=== PATIENT | female | born 1950 | race Caucasian/White ===

== ENCOUNTER 2017-01-03 05:18 | Day surgery (SDC) | payer OTHER ==
[~2017-01-03] VITALS: Ht 167.6 cm; Wt 118.2 kg
[~2017-01-03 05:18] MED LIST: ALLO100T PO; AMLO5TAB2 PO; ASPI-110 PO; BIOT1CHW PO; CETI10CA3 PO; COQ-100C5 PO; DIOV320T PO; FERR325C PO; FURO40TA PO; INSU1INJ13 SQ; LEVO112T2 PO; LYRI150C PO; NOVOLOGP2 SQ; OMEP40CA2 PO; TRAD5TAB PO; VITA2000 PO; VITA500T4 PO; VOLT1GEL4 TOPICAL; ZETI10TA5 PO
[2017-01-03] MEDS ORDERED: POVIDONE IODINE 5% (ANTISEPSIS KIT) 4 APPLICATIONS EACH NARE PRN (05:45)
[2017-01-03] MEDS ORDERED: ceFAZolin 2 GM PREMIX 50 ML IV SCH (05:45)
[2017-01-03] MEDS ORDERED: INSULIN HUMAN REGULAR 1,000 UNITS/10 ML VIAL SQ PRN (05:45)
[2017-01-03] MEDS ORDERED: ONDANSETRON HCL 4 MG/2 ML VIAL IV PUSH SCH (05:45)
[2017-01-03] MEDS ORDERED: ACETAMINOPHEN 1000 MG/100 ML VIAL IV SCH (05:45)
[2017-01-03] MEDS ORDERED: APREPITANT 40 MG CAP PO SCH (05:45)
[2017-01-03] MEDS ORDERED: SODIUM CHLORID 0.9% 500 ML IV PRN (05:45)
[2017-01-03] MEDS ORDERED: CHLORHEXIDINE GLUCONATE 2 % 1 PACK (2 CLOTHS) TOPICAL PRN (05:45)
[2017-01-03] MEDS ORDERED: metroNIDAZOLE 500 MG INJ 100 ML IV SCH (05:45)
[2017-01-03] MEDS ORDERED: LACTATED RINGER'S 1000 ML IV PRN (05:45)
[2017-01-03] MEDS ORDERED: SCOPOLAMINE 1.5 MG PATCH T-DERMAL SCH (05:45)
[2017-01-03] MEDS ORDERED: METOPROLOL TARTRATE 25 MG TAB PO PRN (05:45)
[2017-01-03] MEDS ORDERED: NORC5TAB PO (06:19)
[2017-01-03] MEDS ORDERED: METHYLENE BLUE 10 MG/ML VIAL ONE (07:06)
[2017-01-03] MEDS ORDERED: BUPIVACAINE/EPINEPHRINE 0.25% 50 ML VIAL ONE (07:06)
[2017-01-03] MEDS ORDERED: FAMOTIDINE 20 MG/2 ML VIAL ONE (07:16)
[2017-01-03] MEDS ORDERED: MIDAZOLAM HCL 2 MG/2 ML VIAL ONE ×2 (07:16→09:23)
--- NOTE | 2017-01-03 09:30 | MP ---
cc: THONG BLANTON DATE OF 1950 DATE OF OPERATION 01/03/2017 PREOPERATIVE DIAGNOSIS Morbid obesity with a BMI of 42, complicated by type 2 diabetes and essential hypertension. POSTOPERATIVE DIAGNOSIS Morbid obesity with a BMI of 42, complicated by type 2 diabetes and essential hypertension. PROCEDURE Laparoscopy with lysis of adhesions. SURGEON Thong Blanton MD DIETETIC TECHNICIAN REGISTERED Nicola Pascal, DO ANESTHESIA General endotracheal anesthesia. ESTIMATED BLOOD LOSS Scant. FINDINGS The patient had extensive adhesions in the intraabdominal cavity, adhesions of small bowel to the lower abdomen, the right lower quadrant as well as interloop adhesions. The patient's adhesions were dense adhesions. As a result it was decided not to attempt lysis secondary to the increased risk of bowel injury. These adhesions were in the area where we will need to perform jejunojejunostomy. The patient does have reflux. As a result sleeve gastrectomy cannot perform at this time. SPECIMENS None. COMPLICATIONS None. OPERATION The patient was brought to operating room, placed on the operating table in supine position, bilateral sequential inflation devices placed on the lower extremities, general anesthesia instituted, antibiotics initiated. The abdomen was prepped and draped sterilely. A point 15 mm distal to the xiphoid in the midline was anesthetized with 0;25% Marcaine with epinephrine. Skin incision was made, a 5-mm port placed under direct vision and pneumoperitoneum created. On direct vision a 5-mm left upper quadrant and a 12-mm right upper quadrant, a 12-mm left upper quadrant and 5-mm right upper quadrant ports placed. Prior to placement of all ports the skin and peritoneum were anesthetized with 0.25% Marcaine with epinephrine. The patient's abdominal cavity was inspected. The patient had some adhesions of the small bowel to the abdominal wall which were taken down sharply. After this was performed, it was decided to run the small bowel. The mesocolon was retracted and the ligament of Treitz was identified. On running the bowel, measuring the bowel, there were dense inter-loop adhesions identified just proximal to where the jejunojejunostomy was to be performed. These adhesions were such that we could not lift the bowel up from the root of the mesentery. On further inspection the bowel was adhered to the omentum in the right lower quadrant as well as densely adherent to the abdominal wall and thus we were unable to perform gastric bypass at this time. All laparoscopic ports were removed after releasing the CO2. All skin incisions were closed with 4-0 Monocryl. The abdominal wall was cleaned and sterile dressing placed. The patient was awakened and taken to the recovery room. Tohng Blanton MD JS/SSB /9:00 AM /9:16 AM
[2017-01-03] MEDS ORDERED: *MEPERIDINE 25 MG INJ VIAL PERIprocedural Use ONLY ONE (09:31)
[2017-01-03 11:16] VITALS: BP 126/55; PULSE 57; RESP 16; TEMP 97.6; O2SAT 95
[2017-01-03] MEDS ORDERED: MORPHINE SULFATE 4 MG/ML INJ IV PRN ×2 (11:30)
[2017-01-03] MEDS ORDERED: SODIUM CHLORIDE 0.9% FLUSH 10 ML FLUSH IV FLUSH PRN (11:30)
[2017-01-03] MEDS ORDERED: ONDANSETRON HCL 4 MG/2 ML VIAL IV PRN (11:30)
[2017-01-03] MEDS ORDERED: oxyCODONE/ACETAMINOPHEN 5 MG/325 MG TAB PO PRN ×2 (11:30)
[2017-01-03] MEDS ORDERED: ONDANSETRON HCL 4 MG/2 ML VIAL IV PUSH ONE (12:00)
[2017-01-03] MEDS ORDERED: NEOSTIGMINE 3 MG/3 ML SYR IV ONE (12:00)
[2017-01-03] MEDS ORDERED: LACTATED RINGER'S 1000 ML INJ 1,000 ML IV ONE (12:00)
[2017-01-03] MEDS ORDERED: PROPOFOL 200 MG/20 ML AMP IV ONE (12:00)
[2017-01-03] MEDS ORDERED: ePHEDrine/NS 25 MG/5 ML SYR IV ONE (12:00)
[2017-01-03] MEDS ORDERED: DO NOT ADM ANY ANTICOAGULANT DRUGS PRN (12:45)
[2017-01-03] MEDS ORDERED: SODIUM CHLORIDE 0.9% FLUSH 10 ML FLUSH IV FLUSH SCH (21:00)
== END 2017-01-03 15:19 | disposition home or self-care (01) ==
LOC: HSDI 05:18 → HSDC 05:18 → UNDOADMIN 05:18 → EDSTATUS 07:30 → HSDC 15:19
PROVIDERS: ATTEND Surgery
DX: K66.0 Peritoneal adhesions (postprocedural) (postinfection) (principal); E66.01 Morbid (severe) obesity due to excess calories; Z68.41 Body mass index [BMI] 40.0-44.9, adult; K21.9 Gastro-esophageal reflux disease without esophagitis; E11.9 Type 2 diabetes mellitus without complications; I10 Essential (primary) hypertension
CPT/HCPCS: 00840; 44180; 82948; 94150; J0131; J0690; J2175; J2250; J2405; J2710; J3010; J7120; J8501

== ENCOUNTER 2017-02-21 05:16 | Inpatient (IN) | payer MEDICARE ==
[~2017-02-21] VITALS: Ht 167.6 cm; Wt 116.8 kg
[~2017-02-21 05:16] MED LIST changes: +NORC5TAB PO
[2017-02-21] MEDS ORDERED: APREPITANT 40 MG CAP PO SCH (05:45)
[2017-02-21] MEDS ORDERED: SCOPOLAMINE 1.5 MG PATCH T-DERMAL SCH (05:45)
[2017-02-21] MEDS ORDERED: ceFAZolin 2 GM PREMIX 50 ML IV SCH (05:45)
[2017-02-21] MEDS ORDERED: ACETAMINOPHEN 1000 MG/100 ML 100 ML IV SCH (05:45)
[2017-02-21] MEDS ORDERED: SODIUM CHLORID 0.9% 500 ML IV PRN (05:45)
[2017-02-21] MEDS ORDERED: POVIDONE IODINE 5% (ANTISEPSIS KIT) 4 APPLICATIONS EACH NARE PRN (05:45)
[2017-02-21] MEDS ORDERED: METOPROLOL TARTRATE 25 MG TAB PO PRN (05:45)
[2017-02-21] MEDS ORDERED: LACTATED RINGER'S 1000 ML IV PRN (05:45)
[2017-02-21] MEDS ORDERED: CHLORHEXIDINE GLUCONATE 2 % 1 PACK (2 CLOTHS) TOPICAL PRN (05:45)
[2017-02-21] MEDS ORDERED: ONDANSETRON HCL 4 MG/2 ML VIAL IV PUSH SCH (05:45)
[2017-02-21] MEDS ORDERED: INSULIN HUMAN REGULAR 1,000 UNITS/10 ML VIAL SQ PRN (05:45)
[2017-02-21] MEDS ORDERED: metroNIDAZOLE 500 MG INJ 100 ML IV SCH (05:45)
[2017-02-21] MEDS ORDERED: ACETAMINOPHEN 1000 MG/100 ML 0 ML IV ONE (06:53)
[2017-02-21] MEDS ORDERED: BUPIVACAINE/EPINEPHRINE 0.25% 50 ML VIAL ONE (07:49)
[2017-02-21] MEDS ORDERED: D5-1/2 NS + KCL 20 MEQ INJ 1,000 ML IV SCH (09:49)
[2017-02-21] MEDS ORDERED: 1/2 NS + KCL 20 MEQ INJ 1,000 ML IV SCH (09:49)
[2017-02-21] MEDS ORDERED: ENALAPRILAT 1.25 MG/ML VIAL IV PUSH PRN (10:00)
[2017-02-21] MEDS ORDERED: DEXTROSE 50% IN WATER 50 ML VIAL(D50) IV PUSH PRN (10:00)
[2017-02-21] MEDS ORDERED: diphenhydrAMINE HCL 50 MG/ML VIAL IV PUSH PRN (10:00)
[2017-02-21] MEDS ORDERED: ONDANSETRON HCL 4 MG/2 ML VIAL IV PUSH PRN (10:00)
[2017-02-21] MEDS ORDERED: GLUCAGON 1 MG/ML VIAL OTHER PRN (10:00)
[2017-02-21] MEDS ORDERED: SODIUM CHLORIDE 0.9% FLUSH 10 ML FLUSH IV FLUSH PRN (10:00)
[2017-02-21] MEDS ORDERED: NALOXONE HCL 0.4 MG/ML AMP IV PUSH PRN ×2 (10:00)
[2017-02-21] MEDS ORDERED: MORPHINE SULFATE 30 MG/30 ML PCA IV SCH (10:00)
[2017-02-21] MEDS ORDERED: ACETAMINOPHEN 325MG/HYDROcodone 7.5MG/15ML UDC PO PRN (10:00)
[2017-02-21] MEDS ORDERED: Post-op Orders (for Pharmacy) MISC OTHER ONE (10:04)
[2017-02-21] MEDS ORDERED: DO NOT ADM ANY ANTICOAGULANT DRUGS PRN (10:09)
[2017-02-21] MEDS ORDERED: *RESP: ALBUTEROL 2.5 MG/3 ML NEB (PRN) PERIprocedural Use ONLY NEB ONE (10:29)
[2017-02-21] MEDS ORDERED: *morphine SULFATE 8 MG/ML PERIprocedure ONLY ONE (10:32)
[2017-02-21] MEDS ORDERED: D5-1/2 NS + KCL 20 MEQ INJ 1,000 ML ONE (10:48)
[2017-02-21] MEDS: D5-1/2 NS + KCL 20 MEQ INJ 1,000 ML IV SCH ×2 (10:51→22:00)
[2017-02-21] MEDS ORDERED: ONDANSETRON HCL 4 MG/2 ML VIAL IV PUSH ONE (12:00)
[2017-02-21] MEDS ORDERED: MIDAZOLAM HCL 2 MG/2 ML VIAL IV ONE (12:00)
[2017-02-21] MEDS ORDERED: SODIUM CHLOR 0.9% 250 ML INJ 250 ML IV ONE (12:00)
[2017-02-21] MEDS ORDERED: PHENYLEPH/NS 1000 MCG/10 ML SYR IV ONE (12:00)
[2017-02-21] MEDS ORDERED: LIDOCAINE HCL 1% PF 5 ML AMPULE OTHER ONE (12:00)
[2017-02-21] MEDS ORDERED: PROPOFOL 200 MG/20 ML AMP IV ONE (12:00)
[2017-02-21] MEDS: METOCLOPRAMIDE HCL 10 MG/2 ML VIAL IV PUSH SCH ×2 (12:00→18:27)
[2017-02-21] MEDS ORDERED: PHENYLEPHRINE HCL 10 MG/ML VIAL IV ONE (12:00)
[2017-02-21] MEDS: RESP: ALBUTEROL 2.5 MG/3 ML NEB (SCH) INH ×3 (12:00→23:40)
[2017-02-21] MEDS ORDERED: ePHEDrine/NS 25 MG/5 ML SYR IV ONE (12:00)
[2017-02-21] MEDS ORDERED: LACTATED RINGER'S 1000 ML INJ 1,000 ML IV ONE (12:00)
[2017-02-21] MEDS ORDERED: SODIUM CHLORID 0.9% 500 ML INJ 500 ML IV ONE (12:00)
[2017-02-21] MEDS ORDERED: GLYCOPYRROLATE 1 MG/5 ML VIAL IV PUSH ONE (12:00)
[2017-02-21] MEDS ORDERED: ROCURONIUM INJ 50 MG/5 ML SYRINGE IV PUSH ONE (12:00)
[2017-02-21] MEDS ORDERED: DEXAMETHASONE SOD PHOS 4 MG/ML VIAL IV ONE (12:00)
[2017-02-21] MEDS ORDERED: NEOSTIGMINE 3 MG/3 ML SYR IV ONE (12:00)
[2017-02-21 13:00] VITALS: O2SAT 95
[2017-02-21] MEDS: ACETAMINOPHEN 1000 MG/100 ML 100 ML IV SCH ×2 (14:00→18:29)
[2017-02-21] MEDS: PCA - TOTAL MG MORPHINE DELIVERED PER SHIFT SCH ×2 (14:00→22:00)
[2017-02-21] MEDS: ENOXAPARIN SODIUM 40 MG/0.4 ML SYRINGE SQ SCH (14:00)
[2017-02-21] MEDS ORDERED: PCA - TOTAL MG MORPHINE DELIVERED PER SHIFT SCH (14:00)
[2017-02-21] MEDS: INSULIN NovoLIN REGULAR SUPPLEMENTAL SCALE SQ SCH ×3 (14:53→22:17)
[2017-02-21 16:00] VITALS: BP 142/64; PULSE 71; RESP 18; TEMP 97.9; O2SAT 97
[2017-02-21] MEDS: metroNIDAZOLE 500 MG INJ 100 ML IV SCH ×2 (16:11→21:59)
[2017-02-21 20:00] VITALS: BP 134/51; PULSE 63; RESP 16; TEMP 96.6; O2SAT 98
[2017-02-21 20:35] VITALS: O2SAT 98
[2017-02-21 20:48] VITALS: O2SAT 98
[2017-02-21 21:57] VITALS: RESP 18
[2017-02-21] MEDS: SODIUM CHLORIDE 0.9% FLUSH 10 ML FLUSH IV FLUSH SCH (22:01)
[2017-02-22] VITALS (8 sets, daily range): BP systolic 136–184; BP diastolic 60–86; PULSE 68–74; RESP 14–20; TEMP 96.5–97.5; O2SAT 92–98
[2017-02-22] MEDS: ACETAMINOPHEN 1000 MG/100 ML 100 ML IV SCH ×2 (00:13→05:21)
[2017-02-22] MEDS: METOCLOPRAMIDE HCL 10 MG/2 ML VIAL IV PUSH SCH ×2 (00:13→05:22)
[2017-02-22] MEDS: D5-1/2 NS + KCL 20 MEQ INJ 1,000 ML IV SCH ×3 (01:49→17:49)
[2017-02-22] MEDS: RESP: ALBUTEROL 2.5 MG/3 ML NEB (SCH) INH ×5 (03:39→20:55)
[2017-02-22] MEDS: PCA - TOTAL MG MORPHINE DELIVERED PER SHIFT SCH (05:26)
[2017-02-22] MEDS: metroNIDAZOLE 500 MG INJ 100 ML IV SCH (06:02)
[2017-02-22] MEDS: INSULIN NovoLIN REGULAR SUPPLEMENTAL SCALE SQ SCH ×4 (08:00→23:02)
--- NOTE | 2017-02-22 08:17 | MP ---
cc: THONG BLANTON DATE OF 1950 DATE OF OPERATION 02/21/2017 PREOPERATIVE DIAGNOSES Morbid obesity with a BMI of 42 complicated by type 2 diabetes, essential hypertension, obstructive sleep apnea. POSTOPERATIVE DIAGNOSES Morbid obesity with a BMI of 42 complicated by type 2 diabetes, essential hypertension, obstructive sleep apnea. PROCEDURE Laparoscopic vertical sleeve gastrectomy over a 36-[place] ViSiGi bougie. SURGEON Thong Blanton MD ANESTHESIA General endotracheal anesthesia. ESTIMATED BLOOD LOSS Scant. FINDINGS Fatty liver. SPECIMENS None. COMPLICATIONS None. PROCEDURE IN DETAIL The patient was brought to the operating room and placed on the operating table in supine position, bilateral sequential inflation device placed on lower extremities. General anesthesia was instituted. Antibiotics was initiated. The abdomen was prepped and draped sterilely. A point 15 cm distal to the xiphoid in the midline was anesthetized with 0.25% Marcaine with epinephrine. A skin incision was made, 5-mm OptiView port placed under direct vision and pneumoperitoneum created. Under direct vision, three 5-mm left upper quadrant, a 15-mm right upper quadrant, 5-mm right upper quadrant ports placed. Prior to placement of all ports the skin and peritoneum were anesthetized with 0.25% Marcaine with epinephrine. The patient was placed in reverse Trendelenburg position left side up, the [place]-Flex retractor was placed. The left lobe of the liver was retracted. The vasculature along the greater curvature of the stomach was using harmonic scalpel starting a distance 5-cm proximal to the pylorus and carried towards the angle of His. The angle of His was taken down bluntly. Posterior ligamentous attachments were sharply . A 36-[place] ViSiGi bougie was placed at the start of the case, was placed on suction. Division of the stomach started 5 cm proximal to the pylorus and carried towards the angle of His to completely excise approximately 80% of the stomach. This was performed using an [place] Flex stapler at the pylorus. The first firing was with a black load, followed by a green load and four gold loads. All staple loads were reinforced with SeamGuard. A distance of 2 cm was left from the angle incisura and the staple line and a distance of 1 cm left from the GE junction and the staple line. The pylorus was then occluded, methylene blue tinged saline was instilled. There was no evidence of extravasation. The gastrocolic ligament was then sutured to the posterior leaflet of the SeamGuard using a 2-0 Vicryl suture in a running manner. Bleeding points were controlled with Evicel. The excised stomach was removed from the peritoneal cavity through the 15-mm port site. The fascia at the 15-mm port site was approximated with 0 Vicryl suture. The CO2 was then released, all ports were removed, all skin incisions closed with 4-0 Monocryl. The abdominal wall was cleaned. A sterile dressing was placed. The patient was awakened and taken to the recovery room. MD JAZZY Stahl/SSB /7:58 AM /8:02 AM
[2017-02-22 08:30] LABS: AUTOMATED NEUTROPHIL # 5.5 TH/MM3 (1.8-7.7); BASOPHIL % 0.1 % (0.0-2.0); EOSINOPHIL % 0.1 % (0.0-4.0); HEMATOCRIT 34.3 % (35.0-46.0); HEMO FLAGS DIFF FINAL; LYMPH % 12.7 % (9.0-44.0); LYMPHOCYTE # 0.9 TH/MM3 (1.0-4.8); MEAN CELL VOLUME 89.4 FL (80.0-100.0); MEAN CORPUSCULAR HEMOGLOBIN 29.6 PG (27.0-34.0); MEAN CORPUSCULAR HGB CONC 33.1 % (32.0-36.0); MONO % 8.8 % (0.0-8.0); NEUT % 78.3 % (16.0-70.0); PLATELET COUNT 164 TH/MM3 (150-450); RED BLOOD COUNT 3.84 MIL/MM3 (4.00-5.30); RED CELL DISTRIBUTION WIDTH 14.4 % (11.6-17.2); WHITE BLOOD COUNT 7.1 TH/MM3 (4.0-11.0)
[2017-02-22 08:56] LABS: BICARBONATE 25.2 MEQ/L (21.0-32.0); MAGNESIUM 2.4 MG/DL (1.5-2.5); POTASSIUM 5.2 MEQ/L (3.5-5.1)
[2017-02-22] MEDS ORDERED: DEXTROSE 50% IN WATER 50 ML VIAL(D50) IV PUSH PRN (09:00)
[2017-02-22] MEDS: SODIUM CHLORIDE 0.9% FLUSH 10 ML FLUSH IV FLUSH SCH ×2 (09:00→21:00)
[2017-02-22] MEDS ORDERED: GLUCAGON 1 MG/ML VIAL OTHER PRN (09:00)
[2017-02-22] MEDS ORDERED: METOCLOPRAMIDE HCL 10 MG/2 ML VIAL IV PUSH PRN (10:00)
[2017-02-22] MEDS: PANTOPRAZOLE SOD 40 MG DELAYED RELEASE TAB PO SCH (10:06)
[2017-02-22] MEDS: diphenhydrAMINE HCL ELIXIR 12.5 MG/5 ML CUP PO PRN (11:58)
[2017-02-22] MEDS: LEVOTHYROXINE SODIUM 112 MCG TAB PO SCH (11:59)
[2017-02-22] MEDS: CETIRIZINE HCL 10 MG TAB PO SCH (11:59)
[2017-02-22] MEDS: amLODIPine BESYLATE 5 MG TAB PO SCH (11:59)
[2017-02-22] MEDS ORDERED: diphenhydrAMINE HCL 50 MG/ML VIAL IM ONE (12:00)
[2017-02-22] MEDS ORDERED: FUROSEMIDE 20 MG/2 ML VIAL IV PUSH ONE (12:00)
[2017-02-22] MEDS ORDERED: SODIUM CHLORID 0.9% 500 ML INJ 500 ML IV ONE (12:00)
--- NOTE | 2017-02-22 12:05 | HHI.PR ---
Subjective Subjective Notes Laying in bed Slowly increasing fluids No GI complaints Objective Vitals/I&O Vital Signs Date Time Temp Pulse Resp B/P (MAP) Pulse Ox O2 Delivery O2 Flow Rate FiO2 02/22/17 08:48 97 02/22/17 08:00 97.5 68 14 175/74 (107) 02/21/17 21:57 Nasal Cannula 3.00 02/21/17 15:00 45 Labs Laboratory Tests Test 02/22/17 06:54 White Blood Count 7.1 Red Blood Count 3.84 Hemoglobin 11.4 Hematocrit 34.3 Mean Corpuscular Volume 89.4 Mean Corpuscular Hemoglobin 29.6 Mean Corpuscular Hemoglobin Concent 33.1 Red Cell Distribution Width 14.4 Platelet Count 164 Mean Platelet Volume 10.0 Neutrophils (%) (Auto) 78.3 Lymphocytes (%) (Auto) 12.7 Monocytes (%) (Auto) 8.8 Eosinophils (%) (Auto) 0.1 Basophils (%) (Auto) 0.1 Neutrophils # (Auto) 5.5 Lymphocytes # (Auto) 0.9 Monocytes # (Auto) 0.6 Eosinophils # (Auto) 0.0 Basophils # (Auto) 0.0 CBC Comment DIFF FINAL Differential Comment Blood Urea Nitrogen 51 Creatinine 1.98 Random Glucose 198 Calcium Level 9.0 Magnesium Level 2.4 Sodium Level 135 Potassium Level 5.2 Chloride Level 102 Carbon Dioxide Level 25.2 Anion Gap 8 Estimat Glomerular Filtration Rate 25 Cardiovascular: Regular Lungs: Clear Abdomen: Post-op tenderness Extremities: Perfused Wound Wound : Wound Location: Abdomen Appearance: Clean & Dry A/P Assessment and Plan 67yo F POD#1 VSG -Creatinine 1.98, GFR 25. Pt has CKD but this is lower than baseline 500ml NS bolus followed by Lasix 20mg -Benadryl 25mg for non-specific rash -Encourage frequent ambulation -Increase fluids as tolerated -Blood sugars trending 200+, will add half dose Tresiba as well as medium dose sls -Labs in AM The exam, history, and the medical decision-making described in the above note were completed with the assistance of the mid-level provider. I reviewed and agree with the findings presented. I attest that I had a [id number] encounter with the patient on the same day, and personally performed and documented my assessment and findings in the medical record. Discharge Planning D/C home most likely tomorrow Sally Brown Feb 22, 2017 12:05 Thong Blanton MD Feb 28, 2017 12:46
[2017-02-22] MEDS: ENOXAPARIN SODIUM 40 MG/0.4 ML SYRINGE SQ SCH (15:12)
[2017-02-22] MEDS ORDERED: DEXAMETHASONE SOD PHOS 20 MG/5 ML VIAL IV PUSH ONE (17:30)
[2017-02-22] MEDS ORDERED: DEXAMETHASONE SOD PHOS PF 10 MG/ML VIAL IV PUSH ONE (17:45)
[2017-02-22] MEDS: ACETAMINOPHEN 325MG/HYDROcodone 7.5MG/15ML UDC PO PRN (22:57)
[2017-02-23] VITALS (7 sets, daily range): BP systolic 133–224; BP diastolic 58–90; PULSE 60–72; RESP 17–20; TEMP 96–98; O2SAT 94–98
[2017-02-23] MEDS: RESP: ALBUTEROL 2.5 MG/3 ML NEB (SCH) INH ×3 (00:04→08:51)
[2017-02-23] MEDS: D5-1/2 NS + KCL 20 MEQ INJ 1,000 ML IV SCH (03:31)
[2017-02-23] MEDS: ACETAMINOPHEN 325MG/HYDROcodone 7.5MG/15ML UDC PO PRN ×4 (03:31→23:44)
[2017-02-23] MEDS: LEVOTHYROXINE SODIUM 112 MCG TAB PO SCH (03:32)
[2017-02-23] MEDS ORDERED: TRESIBA SQ SCH (06:00)
[2017-02-23] MEDS: diphenhydrAMINE HCL ELIXIR 12.5 MG/5 ML CUP PO PRN ×3 (07:09→20:00)
[2017-02-23] MEDS: SODIUM CHLORIDE 0.9% FLUSH 10 ML FLUSH IV FLUSH SCH ×2 (09:00→20:09)
[2017-02-23] MEDS: VALSARTAN 160 MG TAB PO SCH (09:00)
[2017-02-23] MEDS: amLODIPine BESYLATE 5 MG TAB PO SCH (09:12)
[2017-02-23] MEDS: PANTOPRAZOLE SOD 40 MG DELAYED RELEASE TAB PO SCH (09:12)
[2017-02-23] MEDS: CETIRIZINE HCL 10 MG TAB PO SCH (09:12)
[2017-02-23] MEDS: INSULIN NovoLIN REGULAR SUPPLEMENTAL SCALE SQ SCH ×4 (09:14→21:00)
[2017-02-23 09:17] LABS: BICARBONATE 25.4 MEQ/L (21.0-32.0)
[2017-02-23] MEDS ORDERED: FUROSEMIDE 20 MG/2 ML VIAL IV PUSH ONE (09:45)
[2017-02-23] MEDS ORDERED: SODIUM POLYSTYRENE SULFONATE SUSP 15 GM/60 ML CUP PO ONE (09:45)
[2017-02-23] MEDS: SODIUM CHLOR 0.9% 1000 ML INJ 1,000 ML IV SCH ×2 (09:45→19:45)
[2017-02-23 10:49] LABS: AUTOMATED NEUTROPHIL # 7.3 TH/MM3 (1.8-7.7); BASOPHIL % 0.5 % (0.0-2.0); HEMATOCRIT 35.9 % (35.0-46.0); HEMO FLAGS DIFF FINAL; LYMPH % 11.4 % (9.0-44.0); MEAN CORPUSCULAR HEMOGLOBIN 29.8 PG (27.0-34.0); MEAN CORPUSCULAR HGB CONC 33.5 % (32.0-36.0); MONO % 5.4 % (0.0-8.0); NEUT % 82.7 % (16.0-70.0); PLATELET COUNT 191 TH/MM3 (150-450); RED BLOOD COUNT 4.03 MIL/MM3 (4.00-5.30); RED CELL DISTRIBUTION WIDTH 14.8 % (11.6-17.2); WHITE BLOOD COUNT 8.8 TH/MM3 (4.0-11.0)
[2017-02-23] MEDS ORDERED: amLODIPine BESYLATE 5 MG TAB PO ONE (12:15)
[2017-02-23] MEDS ORDERED: cloNIDine HCL 0.2 MG TAB PO PRN ×2 (13:30→13:45)
--- NOTE | 2017-02-23 13:55 | PD.CONS ---
HPI Service [facility] Hospitalists Consult Requested By Dr. Blanton Reason for Consult Elevated BP, medical management Primary Care Physician Thang Robin M.D. Diagnoses: History of Present Illness Mrs. Atwood is a pleasant 67 y/o WF with HTN, diabetes mellitus, Hx of CHF, Hyperlipidemia, GERD, and CKD stage 3. She was admitted to [facility] on 02/21/17 for laparoscopic vertical sleeve gastrectomy with Dr. Blanton. Pt reports that on the morning of surgery she took her Lasix, Diovan, Norvasc, and Levothyroxine. Her BP on 02/21 was fairly stable with systolic in the 130-140's mostly. Pts post-op labs on 02/22 noted an increased K+ of 5.2 and Increased Cr 1.98/BUN 51. She was given her Norvasc on 02/22 and Vasotec but her Diovan was held. Pts BP on 02/22 started to rise into the 170-180s systolic. Then today her BP increased to 224/90 at 1200 today. Pt had received her Norvasc 5mg this morning and then received a second dose of Norvasc 5mg around 12:45PM. Pts repeat labs on 02/23 noted continued increase in potassium to 6.0 but her renal function improved to her baseline GFR 34, Cr 1.52. Pt was given Kayexalate today and awaiting repeat labs. [facility] Hospitalist team was consulted to help with medical management, specifically related to her BP. Pt reports that she has been on Diovan and Norvasc for at least 3 years with stable BP readings typically in the 130-140's systolic. She would like to continued on this same regimen as this had been controlling her BP well as an outpt. Review of Systems Constitutional: DENIES: Fever, Weight gain, Weight loss, Chills, Dizziness Eyes: DENIES: Vision loss Ears, nose, mouth, throat: DENIES: Hearing loss Respiratory: DENIES: Shortness of breath Cardiovascular: DENIES: Chest pain, Palpitations, Lower Extremity Edema Gastrointestinal: COMPLAINS OF: Abdominal pain, DENIES: Nausea, Vomiting Genitourinary: DENIES: Urinary frequency, Urinary incontinence, Urgency Musculoskeletal: DENIES: Back pain, Neck pain Integumentary: DENIES: Rash Neurologic: DENIES: Headache Psychiatric: DENIES: Confusion Past Family Social History Past Medical History HTN Hx of CHF, type unspecified, 2D echo (07/2014) --> EF 55-60%, trivial to mild TR , mild MR Diabetes mellitus with diabetic nephropathy CKD, stage III Fatty liver GERD Gout Hypothyroidism Morbid obesity RLS HERNANDEZ RA Past Surgical History Laparoscopy with ANABELL on 01/03/[address] Blanton Hernia repair Hysterectomy Cholecystectomy Bilateral knee replacement Tonsillectomy Right hip fracture repair Reported Medications [place] 5-325 mg Tab 1 Tab PO Q6H PRN Furosemide 40 Mg PO BID Hair Skin & Nails (Biotin W/ Vitamins C & E) 1,250-7.5-7.5 Mcg-Mg-Unit Chew 1 Chew PO DAILY Vitamin B-12 500 Mcg PO DAILY Iron 325 Mg PO DAILY Vitamin D3 2,000 Units PO DAILY Coq-10 Tr 100 Mg Cap 1 Cap PO DAILY Voltaren (Diclofenac Sodium) 1 % Gel..gram. 1 Applic TOPICAL DAILY Zetia 10 Mg PO DAILY Lyrica 150 Mg PO BID Tradjenta 5 Mg PO DAILY Omeprazole 40 Mg PO HS Zyrtec 10 Mg PO DAILY Tresiba Flextouch Pen Inj (Insulin Degludec Inj) 600 unit/3 ML Pen 34 Units SQ DAILY Aspirin 81 Mg PO DAILY Diovan 320 Mg PO DAILY Amlodipine 5 Mg PO DAILY Allopurinol 200 Mg PO DAILY Levothyroxine 224 Mcg PO DAILY Allergies: Coded Allergies: Sulfa (Sulfonamide Antibiotics) (Verified Allergy, Severe, CONFUSION, HALLUCINATIONS, 02/21/17) adhesive (Verified Adverse Reaction, Intermediate, blisters, 02/21/17) Family History Noncontributory Social History Hx of tobacco use, smoked about 2ppd x 25+ years, quit in 1991 Denies any alcohol use Physical Exam Vital Signs Vital Signs Date Time Temp Pulse Resp B/P (MAP) Pulse Ox O2 Delivery O2 Flow Rate FiO2 02/23/17 12:00 96.9 70 18 224/90 (134) 96 02/23/17 08:51 98 02/23/17 08:00 96.5 65 17 181/78 (112) 96 02/23/17 04:00 96.0 68 20 133/58 (83) 94 02/23/17 00:00 98.0 72 20 165/68 (100) 95 02/22/17 20:57 98 02/22/17 20:00 96.6 72 20 160/68 (98) 93 02/22/17 16:00 96.9 73 17 184/80 (114) 94 Physical Exam GENERAL: This is a well-nourished, well-developed patient, in no apparent distress. HEENT: Atraumatic. Normocephalic. No temporal or scalp tenderness. No scleral icterus. Airway patent. NECK: Trachea midline, supple, nontender. CARDIO: Regular. RESP: CTA bilaterally. No wheezes, rales, or rhonchi. ABD: +BS, soft, non-tender, nondistended. EXT: Extremities without clubbing, cyanosis, or edema. NEURO: Awake and alert. Motor and sensory grossly within normal limits. Normal speech. Laboratory Laboratory Tests Test 02/23/17 07:04 02/23/17 10:30 02/23/17 13:32 Blood Urea Nitrogen 43 Creatinine 1.52 Random Glucose 246 Calcium Level 9.4 Sodium Level 136 Potassium Level 6.0 Chloride Level 105 Carbon Dioxide Level 25.4 Anion Gap 6 Estimat Glomerular Filtration Rate 34 White Blood Count 8.8 Red Blood Count 4.03 Hemoglobin 12.0 Hematocrit 35.9 Mean Corpuscular Volume 89.0 Mean Corpuscular Hemoglobin 29.8 Mean Corpuscular Hemoglobin Concent 33.5 Red Cell Distribution Width 14.8 Platelet Count 191 Mean Platelet Volume 9.5 Neutrophils (%) (Auto) 82.7 Lymphocytes (%) (Auto) 11.4 Monocytes (%) (Auto) 5.4 Eosinophils (%) (Auto) 0.0 Basophils (%) (Auto) 0.5 Neutrophils # (Auto) 7.3 Lymphocytes # (Auto) 1.0 Monocytes # (Auto) 0.5 Eosinophils # (Auto) 0.0 Basophils # (Auto) 0.0 CBC Comment DIFF FINAL Differential Comment Result Diagram: 02/23/17 1030 02/23/17 0704 Assessment and Plan Problem List: (1) Morbid obesity ICD Codes: E66.01 - Morbid (severe) obesity due to excess calories Status: Chronic Plan: - Pt is a 67 y/o WF with morbid obesity, HTN, diabetes mellitus, Hx of CHF, Hyperlipidemia, GERD, and CKD stage 3. - She was admitted to [facility] on 02/21/17 for laparoscopic vertical sleeve gastrectomy with Dr. Blanton. - Pt is having issues with BP control post-operatively. - Post-op pain control per GS - Pt is ambulating in the room without difficulty - Diet advancement per GS - DVT prophylaxis with SCDs (2) HTN (hypertension) ICD Codes: I10 - Essential (primary) hypertension Status: Chronic Plan: - She was given her Norvasc on 02/22 and Vasotec but her Diovan was held. - Pts BP on 02/22 started to rise into the 170-180s systolic. Then today her BP increased to 224/90 at 1200 today. - Pt had received her Norvasc 5mg this morning and then received a second dose of Norvasc 5mg around 12:45PM. - We will give Clonidine 0.2mg po Q6H PRN today - If repeat potassium is improved tomorrow morning then we will resume her outpt dose of Diovan and Norvasc as this had been controlling her BP well as an outpt. - Monitor vitals closely (3) CKD (chronic kidney disease) stage 3, GFR 30-59 ml/min ICD Codes: N18.3 - Chronic kidney disease, stage 3 (moderate) Status: Chronic Plan: - Pts post-op labs on 02/22 noted an increased K+ of 5.2 and Increased Cr 1.98/ BUN 51. - Pts repeat labs on 02/23 noted continued increase in potassium to 6.0 but her renal function improved to her baseline GFR 34, Cr 1.52. - Pt was given Kayexalate today and awaiting repeat labs. (4) Hyperkalemia ICD Codes: E87.5 - Hyperkalemia Status: Acute Plan: - See above (5) Diabetes mellitus type 2, insulin dependent ICD Codes: E11.9 - Type 2 diabetes mellitus without complications; Z79.4 - terminal block assembler (current) use of insulin Status: Chronic Plan: - NovoLog SSI - Accu checks Assessment and Plan Patient examined. Assessment and plan formulated with Lori Baugh PA-C. I agree with the above. pt had some mild a/ckd 3 with hyperkalemia ivf with kcl stopped. kayexalate given. repeat k 5.3....her arb was held due to hyperkalemia...then bp spiked. extra norvasc given and now sbp 130s....prn clonidine tonight...recheck k in AM and resume her arb/ccb in AM as per home dosing and d/c home. Lori Baugh Feb 23, 2017 13:55 Adam Carson MD Feb 23, 2017 15:34
[2017-02-23 14:08] LABS: BICARBONATE 27.6 MEQ/L (21.0-32.0); POTASSIUM 5.3 MEQ/L (3.5-5.1)
--- NOTE | 2017-02-23 14:26 | HHI.PR ---
Subjective Subjective Notes Patient has been hypertensive overnight despite resuming home meds. Was unable to restart Valsartan due to high K+ levels. Noon BP reading was 224/90. She also complains of a macular rash on both arms and chest. Does not itch and gets better with Benadryl then returns. From a GI standpoint she is doing well. Passing flatus and tolerating fluids. Nausea and pain well controlled. Objective Vitals/I&O Vital Signs Date Time Temp Pulse Resp B/P (MAP) Pulse Ox O2 Delivery O2 Flow Rate FiO2 02/23/17 12:00 96.9 70 18 224/90 (134) 96 02/21/17 21:57 Nasal Cannula 3.00 02/21/17 15:00 45 Labs Laboratory Tests Test 02/23/17 07:04 02/23/17 10:30 02/23/17 13:32 Blood Urea Nitrogen 43 39 Creatinine 1.52 1.45 Random Glucose 246 148 Calcium Level 9.4 9.6 Sodium Level 136 138 Potassium Level 6.0 5.3 Chloride Level 105 106 Carbon Dioxide Level 25.4 27.6 Anion Gap 6 4 Estimat Glomerular Filtration Rate 34 36 White Blood Count 8.8 Red Blood Count 4.03 Hemoglobin 12.0 Hematocrit 35.9 Mean Corpuscular Volume 89.0 Mean Corpuscular Hemoglobin 29.8 Mean Corpuscular Hemoglobin Concent 33.5 Red Cell Distribution Width 14.8 Platelet Count 191 Mean Platelet Volume 9.5 Neutrophils (%) (Auto) 82.7 Lymphocytes (%) (Auto) 11.4 Monocytes (%) (Auto) 5.4 Eosinophils (%) (Auto) 0.0 Basophils (%) (Auto) 0.5 Neutrophils # (Auto) 7.3 Lymphocytes # (Auto) 1.0 Monocytes # (Auto) 0.5 Eosinophils # (Auto) 0.0 Basophils # (Auto) 0.0 CBC Comment DIFF FINAL Differential Comment Cardiovascular: Regular, Other (III/ systolic murmur) Lungs: Clear Abdomen: Post-op tenderness Extremities: Perfused Wound Wound : Wound Location: Abdomen Appearance: Clean & Dry A/P Assessment and Plan 67yo F POD#2 VSG -Creatinine and GFR back to baseline. IVF with K stopped and pt given Kayexalate for K+ 6.0 Repeat K+ only down to 5.3 Repeat labs in AM. -Repeat dose of amlodipine 5mg, hold ARB for now due to hyperkalemia. Pt now normo-tensive. Appreciate input from medicine -Benadryl 25mg PRN for rash -Encourage frequent ambulation -Increase fluids as tolerated -Blood sugars improving with Tresiba and SLS -Labs in AM The exam, history, and the medical decision-making described in the above note were completed with the assistance of the mid-level provider. I reviewed and agree with the findings presented. I attest that I had a [id number] encounter with the patient on the same day, and personally performed and documented my assessment and findings in the medical record. Discharge Planning D/C home most likely tomorrow, stable from bariatric standpoint Sally Brown Feb 23, 2017 14:26 Thong Blanton MD Feb 28, 2017 12:57
[2017-02-23] MEDS: ENOXAPARIN SODIUM 40 MG/0.4 ML SYRINGE SQ SCH (15:29)
[2017-02-23] MEDS ORDERED: FURO20TA PO (16:49)
--- NOTE | 2017-02-23 16:55 | HHI.DS ---
Discharge Summary Admission Date Feb 21, 2017 at 05:16 Admitting Diagnosis Morbid obesity Procedures Laparoscopic VSG Brief History Morbid obesity complicated by DM, CKD 3, CHF, HTN CBC/BMP: 02/23/17 1030 02/23/17 1332 Significant Findings Laboratory Tests Test 02/22/17 06:54 02/23/17 07:04 02/23/17 10:30 02/23/17 13:32 Red Blood Count 3.84 MIL/MM3 (4.00-5.30) Hemoglobin 11.4 GM/DL (11.6-15.3) Hematocrit 34.3 % (35.0-46.0) Neutrophils (%) (Auto) 78.3 % (16.0-70.0) 82.7 % (16.0-70.0) Monocytes (%) (Auto) 8.8 % (0.0-8.0) Lymphocytes # (Auto) 0.9 TH/MM3 (1.0-4.8) Blood Urea Nitrogen 51 MG/DL (7-18) 43 MG/DL (7-18) 39 MG/DL (7-18) Creatinine 1.98 MG/DL (0.50-1.00) 1.52 MG/DL (0.50-1.00) 1.45 MG/DL (0.50-1.00) Random Glucose 198 MG/DL (74-106) 246 MG/DL (74-106) 148 MG/DL (74-106) Sodium Level 135 MEQ/L (136-145) Potassium Level 5.2 MEQ/L (3.5-5.1) 6.0 MEQ/L (3.5-5.1) 5.3 MEQ/L (3.5-5.1) Estimat Glomerular Filtration Rate 25 ML/MIN (>89) 34 ML/MIN (>89) 36 ML/MIN (>89) Anion Gap 4 MEQ/L (5-15) PE at Discharge Lungs: CTA Cardiac: systolic murmur, denies chest pain Abd: Post-op tenderness with incisions clean, dry, and intact Extremities: perfused Hospital Course Procedure was performed without incident and patient tolerated well. She became hypertensive overnight and during the day. Her creatinine and serum potassium had increased. At this point medicine was consulted. Pt was managed with amlodipine and PRN clonidine. Labs improved and patient was discharged home Pt Condition on Discharge: Stable Discharge Disposition: Discharge Home Discharge Instructions DIET: Follow Instructions for: Bariatric Surgery Diet Activities you can perform: Shower Only-No Bath Activities to Avoid: Strenuous Activity Follow up Referrals: Surgical - 02/28/17 @ [facility] Surgery with Thong Blanton MD Changed Medications: Furosemide (Furosemide) 20 Mg Tab 20 MG PO BID PRN for TARGET BLOOD PRESSURE NOT MET, #60 TAB 0 Refills (Changed from: Furosemide 40 Mg Tab 40 Mg PO BID #60 TAB Ref 0) Insulin Degludec Inj (Tresiba Flextouch Pen Inj) 300 unit/3 ML Pen 17 UNITS SQ DAILY@0600 for Blood Sugar Management, #15 ML 0 Refills (Changed from: Insulin Degludec Inj (Tresiba Flextouch Pen Inj) 600 unit/3 ML Pen 34 Units SQ DAILY Blood Sugar Management #9 ML Ref 0) Continued Medications: Allopurinol (Allopurinol) 100 Mg Tab 200 MG PO DAILY for Gout, #30 TAB 0 Refills Amlodipine (Amlodipine) 5 Mg Tab 5 MG PO DAILY for Blood Pressure Management, #30 TAB [address] (Aspirin 81) 81 Mg Tabdr 81 MG PO DAILY, TAB 0 Refills Biotin W/ Vitamins C & E (Hair Skin & Nails) 1,250-7.5-7.5 Mcg-Mg-Unit Chew 1 CHEW PO DAILY Cetirizine HCl (Zyrtec) 10 Mg Capsule 10 MG PO DAILY Diclofenac Sodium (Voltaren) 1 % Gel..gram. 1 APPLIC TOPICAL DAILY Ezetimibe (Zetia) 10 Mg Tab 10 MG PO DAILY, #30 TAB 0 Refills Hydrocodone-Acetaminophen ([place]) 5-325 mg Tab 1 TAB PO Q6H PRN for PAIN, TAB 0 Refills Levothyroxine (Levothyroxine) 112 Mcg Tab 224 MCG PO DAILY for Thyroid, #30 TAB 0 Refills Omeprazole (Omeprazole) 40 Mg Cap 40 MG PO HS, #30 CAP 0 Refills Pregabalin (Lyrica) 150 Mg Cap 150 MG PO BID, #60 CAP 0 Refills Valsartan (Diovan) 320 Mg Tab 320 MG PO DAILY, #30 TAB 0 Refills Discontinued Medications: Cholecalciferol (Vitamin D3) 2,000 Unit Cap 2000 UNITS PO DAILY for Nutritional Supplement, #1 BOTTLE 0 Refills Coenzyme Q10 (Ubidecarenone) (Coq-10 Tr) 100 Mg Cap 1 CAP PO DAILY Cyanocobalamin (Vitamin B-12) 500 Mcg Tab 500 MCG PO DAILY for Nutritional Supplement, #1 BOTTLE 0 Refills Ferrous Sulfate (Iron) 325 Mg Cap 325 MG PO DAILY for Nutritional Supplement, #30 TAB 0 Refills Linagliptin (Tradjenta) 5 Mg Tab 5 MG PO DAILY for Blood Sugar Management, #30 TAB 0 Refills Sally Brown [facility] Feb 23, 2017 16:55
[2017-02-23] MEDS: FUROSEMIDE 20 MG TAB PO SCH (18:04)
[2017-02-23] MEDS: PREGABALIN 75 MG CAP PO SCH (20:58)
[2017-02-23] MEDS ORDERED: INSU1INJ14 SQ (23:24)
[2017-02-24] VITALS: BP 154/65; PULSE 50; RESP 20; TEMP 96.5; O2SAT 95
[2017-02-24 02:00] VITALS: O2SAT 98
[2017-02-24] MEDS: SODIUM CHLOR 0.9% 1000 ML INJ 1,000 ML IV SCH (03:04)
[2017-02-24 04:00] VITALS: BP 124/50; PULSE 50; RESP 20; TEMP 97.5; O2SAT 95
[2017-02-24] MEDS: diphenhydrAMINE HCL ELIXIR 12.5 MG/5 ML CUP PO PRN (05:12)
[2017-02-24] MEDS: LEVOTHYROXINE SODIUM 112 MCG TAB PO SCH (05:12)
[2017-02-24] MEDS: ACETAMINOPHEN 325MG/HYDROcodone 7.5MG/15ML UDC PO PRN ×2 (05:13→11:40)
[2017-02-24 06:23] LABS: BICARBONATE 27.5 MEQ/L (21.0-32.0); POTASSIUM 4.2 MEQ/L (3.5-5.1)
[2017-02-24 08:00] VITALS: BP 133/82; PULSE 49; RESP 16; TEMP 96.9; O2SAT 94
[2017-02-24] MEDS: INSULIN NovoLIN REGULAR SUPPLEMENTAL SCALE SQ SCH (08:00)
--- NOTE | 2017-02-24 08:15 | HHI.PR ---
Subjective Subjective Notes s/p lap sleeve pod #3 no cp no sob Objective Vitals/I&O Vital Signs Date Time Temp Pulse Resp B/P (MAP) Pulse Ox O2 Delivery O2 Flow Rate FiO2 02/24/17 04:00 97.5 50 20 124/50 (74) 95 02/24/17 02:00 HOME CPAP 2.00 02/21/17 15:00 45 Labs Laboratory Tests Test 02/23/17 10:30 02/23/17 13:32 02/24/17 05:10 White Blood Count 8.8 Red Blood Count 4.03 Hemoglobin 12.0 Hematocrit 35.9 Mean Corpuscular Volume 89.0 Mean Corpuscular Hemoglobin 29.8 Mean Corpuscular Hemoglobin Concent 33.5 Red Cell Distribution Width 14.8 Platelet Count 191 Mean Platelet Volume 9.5 Neutrophils (%) (Auto) 82.7 Lymphocytes (%) (Auto) 11.4 Monocytes (%) (Auto) 5.4 Eosinophils (%) (Auto) 0.0 Basophils (%) (Auto) 0.5 Neutrophils # (Auto) 7.3 Lymphocytes # (Auto) 1.0 Monocytes # (Auto) 0.5 Eosinophils # (Auto) 0.0 Basophils # (Auto) 0.0 CBC Comment DIFF FINAL Differential Comment Blood Urea Nitrogen 39 39 Creatinine 1.45 1.46 Random Glucose 148 122 Calcium Level 9.6 9.1 Sodium Level 138 140 Potassium Level 5.3 4.2 Chloride Level 106 105 Carbon Dioxide Level 27.6 27.5 Anion Gap 4 8 Estimat Glomerular Filtration Rate 36 36 Abdomen: Post-op tenderness Extremities: Perfused Wound Wound : Wound Location: Abdomen Appearance: Clean & Dry A/P Assessment and Plan s/p Lap sleeve POD #3 doing well bp better controlled restart home meds d/c home Thong Blanton MD Feb 24, 2017 08:15
[2017-02-24] MEDS: CETIRIZINE HCL 10 MG TAB PO SCH (08:53)
[2017-02-24] MEDS: PANTOPRAZOLE SOD 40 MG DELAYED RELEASE TAB PO SCH (08:53)
[2017-02-24] MEDS: VALSARTAN 160 MG TAB PO SCH (08:53)
[2017-02-24] MEDS: PREGABALIN 75 MG CAP PO SCH (08:53)
[2017-02-24] MEDS: amLODIPine BESYLATE 5 MG TAB PO SCH (08:53)
[2017-02-24] MEDS: FUROSEMIDE 20 MG TAB PO SCH (08:54)
[2017-02-24] MEDS: SODIUM CHLORIDE 0.9% FLUSH 10 ML FLUSH IV FLUSH SCH (08:54)
--- NOTE | 2017-02-24 10:54 | HHI.PR ---
Subjective Remarks No new complaints BP is improved today Pt planned for discharge to home today Objective Vitals Vital Signs Date Time Temp Pulse Resp B/P (MAP) Pulse Ox O2 Delivery O2 Flow Rate FiO2 02/24/17 08:00 96.9 49 16 133/82 (99) 94 02/24/17 04:00 97.5 50 20 124/50 (74) 95 02/24/17 02:00 98 HOME CPAP 2.00 02/24/17 00:00 96.5 50 20 154/65 (94) 95 02/23/17 20:00 96.7 60 20 185/78 (113) 95 02/23/17 14:53 68 134/58 (83) 02/23/17 12:00 96.9 70 18 224/90 (134) 96 Result Diagram: 02/23/17 1030 02/24/17 0510 Other Results Laboratory Tests Test 02/23/17 07:04 02/23/17 10:30 02/23/17 13:32 02/24/17 05:10 Blood Urea Nitrogen 43 MG/DL 39 MG/DL 39 MG/DL Creatinine 1.52 MG/DL 1.45 MG/DL 1.46 MG/DL Random Glucose 246 MG/DL 148 MG/DL 122 MG/DL Calcium Level 9.4 MG/DL 9.6 MG/DL 9.1 MG/DL Sodium Level 136 MEQ/L 138 MEQ/L 140 MEQ/L Potassium Level 6.0 MEQ/L 5.3 MEQ/L 4.2 MEQ/L Chloride Level 105 MEQ/L 106 MEQ/L 105 MEQ/L Carbon Dioxide Level 25.4 MEQ/L 27.6 MEQ/L 27.5 MEQ/L Anion Gap 6 MEQ/L 4 MEQ/L 8 MEQ/L Estimat Glomerular Filtration Rate 34 ML/MIN 36 ML/MIN 36 ML/MIN White Blood Count 8.8 TH/MM3 Red Blood Count 4.03 MIL/MM3 Hemoglobin 12.0 GM/DL Hematocrit 35.9 % Mean Corpuscular Volume 89.0 FL Mean Corpuscular Hemoglobin 29.8 PG Mean Corpuscular Hemoglobin Concent 33.5 % Red Cell Distribution Width 14.8 % Platelet Count 191 TH/MM3 Mean Platelet Volume 9.5 FL Neutrophils (%) (Auto) 82.7 % Lymphocytes (%) (Auto) 11.4 % Monocytes (%) (Auto) 5.4 % Eosinophils (%) (Auto) 0.0 % Basophils (%) (Auto) 0.5 % Neutrophils # (Auto) 7.3 TH/MM3 Lymphocytes # (Auto) 1.0 TH/MM3 Monocytes # (Auto) 0.5 TH/MM3 Eosinophils # (Auto) 0.0 TH/MM3 Basophils # (Auto) 0.0 TH/MM3 CBC Comment DIFF FINAL Differential Comment Objective Remarks General: NAD, AAOx3 Chest: CTA Cardiac: Regular Abd: +BS, soft mildly tender around incision sites which are c/d/i Ext: No edema A/P Problem List: (1) Morbid obesity ICD Codes: E66.01 - Morbid (severe) obesity due to excess calories Status: Chronic Plan: - Pt is a 67 y/o WF with morbid obesity, HTN, diabetes mellitus, Hx of CHF, Hyperlipidemia, GERD, and CKD stage 3. - [place] [facility] [place] vertical sleeve gastrectomy with Dr. Blanton. . - Post-op pain control per GS - Pt is ambulating in the room without difficulty - Diet advancement per GS - DVT prophylaxis with SCDs (2) HTN (hypertension) ICD Codes: I10 - Essential (primary) hypertension Status: Chronic Plan: - She was given her Norvasc on 02/22 and Vasotec but her Diovan was held. - Pts BP on 02/22 started to rise into the 170-180s systolic. Then today her BP increased to 224/90 at 1200 today. - Pt had received her Norvasc 5mg this morning and then received a second dose of Norvasc 5mg around 12:45PM. - Pt was given Clonidine 0.2mg po Q6H PRN on 02/23 - BP imrpoved and pt pts potassium improved she was resumed on her home regimen on 02/24 with a stable BP and pt cleared for discharge to home (3) CKD (chronic kidney disease) stage 3, GFR 30-59 ml/min ICD Codes: N18.3 - Chronic kidney disease, stage 3 (moderate) Status: Chronic Plan: - Pts post-op labs on 02/22 noted an increased K+ of 5.2 and Increased Cr 1.98/ BUN 51. - Pts repeat labs on 02/23 noted continued increase in potassium to 6.0 but her renal function improved to her baseline GFR 34, Cr 1.52. - Pt was given Kayexalate on 02/23 and repeat labs with K+ 5.3 on 02/23 - Repeat labs on 02/24 with K+ 4.2 (4) Hyperkalemia ICD Codes: E87.5 - Hyperkalemia Status: Acute Plan: - See above (5) Diabetes mellitus type 2, insulin dependent ICD Codes: E11.9 - Type 2 diabetes mellitus without complications; Z79.4 - care home (current) use of insulin Status: Chronic Plan: - NovoLog SSI - Accu checks Assessment and Plan Patient examined. Assessment and plan formulated with Lori Baugh PA-C. I agree with the above. bp, k, gfr stable and back to baseline resume home bp meds. ok to d/c and f/u with pcp and outpt doctors. Lori Baugh Feb 24, 2017 10:54 Adam Carson MD Feb 24, 2017 11:07
== END 2017-02-24 12:01 | disposition home or self-care (01) | DRG 620 ==
LOC: HSDI 05:16 → N07B 15:22
PROVIDERS: ADMIT Surgery; ATTEND Surgery
PROC: 0DB64Z3 Excision of Stomach, Percutaneous Endoscopic Approach, Vertical (ICD-10-PCS; principal; 2017-02-21 08:14)
DX: E66.01 Morbid (severe) obesity due to excess calories (principal); I13.0 Hypertensive heart and chronic kidney disease with heart failure and stage 1 through stage 4 chronic kidney disease, or unspecified chronic kidney disease; N17.9 Acute kidney failure, unspecified; E11.22 Type 2 diabetes mellitus with diabetic chronic kidney disease; I50.9 Heart failure, unspecified; N25.81 Secondary hyperparathyroidism of renal origin; N18.3 Chronic kidney disease, stage 3 (moderate); G47.33 Obstructive sleep apnea (adult) (pediatric); K21.9 Gastro-esophageal reflux disease without esophagitis; E87.5 Hyperkalemia; E78.5 Hyperlipidemia, unspecified; G89.4 Chronic pain syndrome; K76.0 Fatty (change of) liver, not elsewhere classified; M10.9 Gout, unspecified; G25.81 Restless legs syndrome; R21 Rash and other nonspecific skin eruption; E03.9 Hypothyroidism, unspecified; M06.9 Rheumatoid arthritis, unspecified; Z96.653 Presence of artificial knee joint, bilateral; Z68.41 Body mass index [BMI] 40.0-44.9, adult; Z87.891 Personal history of nicotine dependence; Z79.4 Long term (current) use of insulin
CPT/HCPCS: 80048; 82948; 83735; 85025; 94002; 94150; 94640; 94664; 94762; J0131; J0690; J1100; J1650; J1940; J2250; J2270; J2370; J2405; J2710; J2765; J3010; J3480; J7030; J7040; J7050; J7120; J7613; J8501